=== PATIENT | female | born 1960 | race Hispanic/Latino ===

== ENCOUNTER → 2023-10-27 | Outpatient (CLI) | payer OTHER ==
[~2023-10-27] MED LIST: IOHEXOL 350 MG/ML 100ML INFUS..BTL IV ONE
== END | disposition home or self-care (01) ==
LOC: RAH 07:48
PROVIDERS: ATTEND Internal Medicine Gastroenterology
DX: K80.20 Calculus of gallbladder without cholecystitis without obstruction (principal); R10.10 Upper abdominal pain, unspecified; D64.9 Anemia, unspecified
CPT/HCPCS: 74177; Q9967

== ENCOUNTER → 2024-03-29 | Outpatient (CLI) | payer OTHER ==
[2024-03-29 10:36] LABS: CREATININE 0.5 mg/dL (0.5-1.0)
== END | disposition home or self-care (01) ==
LOC: LAB 09:34
PROVIDERS: ATTEND Internal Medicine Pulmonary Disease
DX: I70.1 Atherosclerosis of renal artery (principal)
CPT/HCPCS: 36415; 82565; 84520

== ENCOUNTER → 2024-04-05 | Outpatient (CLI) | payer OTHER ==
--- NOTE | 2024-04-05 14:11 | HMCIMG ---
CT ANGIO RENAL ARTERIES REASON: ATHEROSCLEROSIS OF RENAL ARTERIES COMPARISON: None TECHNIQUE: Images are obtained from lung bases through the iliac crests before and during bolus IV contrast infusion, 100 cc Omnipaque 350. 2-D and 3-D multi planar reconstruction images were obtained with particular attention to the renal arteries. FINDINGS: There is normal size and appearance of both kidneys. There are single renal arteries on both sides. Renal artery origins are widely patent. There is no evidence of renal artery stenosis. There are mild plaques in the abdominal aorta but no stenosis or aneurysm. Renal and mesenteric artery origins are widely patent. Common iliac arteries are widely patent as well. Lung bases are clear. There are no focal liver lesions. Spleen and pancreas appear normal. There are multiple small stones in an otherwise normal-appearing gallbladder. Bowel loops appear unremarkable. There is no free air or fluid. There are no focal fluid collections. Anterior abdominal wall appears intact. There are no focal osseous lesions. IMPRESSION: 1. Mild atherosclerotic changes in the abdominal aorta. 2. Renal and mesenteric artery origins are widely patent. 3. Cholelithiasis without evidence of acute cholecystitis.
== END | disposition home or self-care (01) ==
LOC: RAH 07:34
PROVIDERS: ATTEND Internal Medicine Cardiovascular Disease
DX: K80.20 Calculus of gallbladder without cholecystitis without obstruction (principal); I70.1 Atherosclerosis of renal artery; I70.0 Atherosclerosis of aorta
CPT/HCPCS: 74175; Q9967